=== PATIENT | female | born 1950 | race Two or more races ===

== ENCOUNTER 2020-04-15 08:20 | Outpatient (CLI) | payer OTHER ==
[~2020-04-15 08:20] MED LIST: AMARYL PO; ASA81 MG PO; HYZAAR 100-121 UDTAB PO; INTESTINEX680 MG PO; OMEPRAZOLE20 MG PO; PERCOCET 5/3251 TAB PO; SINGULAIR10 MG PO; SYNTHROID50 MCG PO
== END 2020-04-15 08:25 | disposition home or self-care (01) ==
LOC: NUCLEAR 08:20
PROVIDERS: ATTEND Internal Medicine
DX: E11.69 Type 2 diabetes mellitus with other specified complication (principal); K31.84 Gastroparesis
CPT/HCPCS: 78264; A9541

== ENCOUNTER 2021-03-11 08:13 | Outpatient (CLI) | payer OTHER | END 2021-03-11 08:26 | disposition home or self-care (01) | LOC: TOM 08:13 | PROVIDERS: ATTEND Internal Medicine Pulmonary Disease | DX: R91.8 Other nonspecific abnormal finding of lung field (principal); J84.112 Idiopathic pulmonary fibrosis ==

== ENCOUNTER 2021-04-23 09:26 | Outpatient (CLI) | payer OTHER | END 2021-04-23 09:33 | disposition home or self-care (01) | LOC: TOM 09:26 | PROVIDERS: ATTEND Internal Medicine Gastroenterology | DX: N28.89 Other specified disorders of kidney and ureter (principal); K59.01 Slow transit constipation; I12.9 Hypertensive chronic kidney disease with stage 1 through stage 4 chronic kidney disease, or unspecified chronic kidney disease; N18.4 Chronic kidney disease, stage 4 (severe); K57.90 Diverticulosis of intestine, part unspecified, without perforation or abscess without bleeding | CPT/HCPCS: 74177; Q9965 ==

== ENCOUNTER 2021-11-16 09:49 | Outpatient (CLI) | payer OTHER | END 2021-11-16 09:57 | disposition home or self-care (01) | LOC: TOM 09:49 | PROVIDERS: ATTEND Internal Medicine Gastroenterology | DX: R19.5 Other fecal abnormalities (principal); K57.30 Diverticulosis of large intestine without perforation or abscess without bleeding; K59.01 Slow transit constipation; K44.9 Diaphragmatic hernia without obstruction or gangrene; K31.84 Gastroparesis ==

== ENCOUNTER 2021-11-29 11:57 | Outpatient (CLI) | payer OTHER | END 2021-11-29 12:00 | disposition home or self-care (01) | LOC: NUCLEAR 11:57 | PROVIDERS: ATTEND Internal Medicine Pulmonary Disease | DX: I27.82 Chronic pulmonary embolism (principal) ==

== ENCOUNTER 2021-12-14 08:22 | Outpatient (CLI) | payer OTHER | END 2021-12-14 08:30 | disposition home or self-care (01) | LOC: RX STUDY 08:22 | PROVIDERS: ATTEND Internal Medicine Gastroenterology | DX: R19.5 Other fecal abnormalities (principal); K57.30 Diverticulosis of large intestine without perforation or abscess without bleeding; K59.01 Slow transit constipation; K14.9 Disease of tongue, unspecified; K31.84 Gastroparesis ==

== ENCOUNTER 2024-04-24 08:18 | Outpatient (CLI) | payer OTHER | END 2024-04-24 08:22 | disposition home or self-care (01) | LOC: NUCLEAR 08:18 | PROVIDERS: ATTEND Internal Medicine Gastroenterology | DX: R10.0 Acute abdomen (principal) | CPT/HCPCS: 78264; A9541 ==

== ENCOUNTER 2025-05-22 10:02 | Outpatient (CLI) | payer OTHER | END 2025-05-22 10:05 | disposition home or self-care (01) | LOC: TOM 10:02 | PROVIDERS: ATTEND Internal Medicine | DX: R10.9 Unspecified abdominal pain (principal) | CPT/HCPCS: 74177; Q9965 ==